=== PATIENT | female | born 1975 | race Caucasian/White ===

== ENCOUNTER 2019-07-10 09:38 | Emergency (ER) | payer BC ==
[~2019-07-10] VITALS: Ht 170.2 cm; Wt 59.0 kg
[2019-07-10 11:39] VITALS: BP 115/70
== END 2019-07-10 11:39 | disposition home or self-care (01) ==
LOC: M.ERS 09:38
DX: S01.81XA Laceration without foreign body of other part of head, initial encounter (principal); R55 Syncope and collapse; G43.909 Migraine, unspecified, not intractable, without status migrainosus; Z90.710 Acquired absence of both cervix and uterus; Z88.1 Allergy status to other antibiotic agents; Z88.2 Allergy status to sulfonamides; W18.39XA Other fall on same level, initial encounter; Y93.89 Activity, other specified; Y92.89 Other specified places as the place of occurrence of the external cause; Y99.8 Other external cause status